=== PATIENT | female | born 1990 | race Hispanic/Latino ===

== ENCOUNTER 2020-11-08 00:55 | Inpatient (IN) | payer MEDICAID, OTHER ==
[2020-11-08] MEDS ORDERED: ACETAMINOPHEN EXTRA STRENGTH 500 MG TABLET ONE (02:13)
[2020-11-08 02:18] LABS: BASOPHILS % (AUTO) 0.4 % (0.0-5.0); EOSINOPHILS % (AUTO) 0.4 % (0.0-8.0); HEMATOCRIT 37.3 % (36-48); LYMPHOCYTES % (AUTO) 19.7 % (21.0-51.0); MEAN CORPUSCULAR HEMOGLOBIN 29.4 pg (27.0-33.0); MEAN CORPUSCULAR VOLUME 89.2 fL (79-99); MONOCYTES % (AUTO) 11.5 % (3.0-13.0); NEUTROPHILS % (AUTO) 67.8 % (40.0-77.0); PLATELET COUNT (AUTO) 243 K/uL (130-400); RED BLOOD CELL COUNT(AUTO) 4.18 MIL/uL (4.00-5.50); RED CELL DISTRIBUTION WIDTH 14.6 % (11.0-15.5); WHITE BLOOD COUNT (AUTO) 5.6 K/uL (4.8-10.8)
[2020-11-08] MEDS ORDERED: LIDOCAINE HCL 2% VISCOUS 15 ML UDCUP ONE (02:30)
[2020-11-08] MEDS ORDERED: LIDOCAINE HCL 1% 20 ML VIAL ONE (02:30)
[2020-11-08] MEDS ORDERED: CLINDAMYCIN 900 MG/D5% WATER 50 ML IV ONE (02:31)
[2020-11-08 02:32] LABS: INR 0.97 (0.85-1.15); PROTHROMBIN TIME 10.6 SEC (9.6-11.6)
[2020-11-08 02:34] LABS: PARTIAL THROMBOPLASTIN TIME 28.2 SEC (26.3-35.5)
[2020-11-08 02:38] LABS: APPEARANCE,URINE Clear (CLEAR); BILIRUBIN,URINE Negative (NEGATIVE); COLOR,URINE Yellow (YELLOW); GLUCOSE, URINE (UA) >=1000 mg/dL (NEGATIVE); KETONES,URINE Negative (NEGATIVE); LEUKOCYTE ESTERASE ,URINE Negative (NEGATIVE); NITRATE,URINE Negative (NEGATIVE); OCCULT BLOOD,URINE Negative (NEGATIVE); PROTEIN,URINE Negative (NEGATIVE)
[2020-11-08 02:43] LABS: ALANINE AMINOTRANSFERASE 90 U/L (12-78); ALBUMIN 3.6 g/dL (3.5-5.0); ASPARTATE AMINOTRANSFERASE 56 U/L (10-37); BILIRUBIN,TOTAL 0.7 mg/dL (0.2-1.0); CARBON DIOXIDE 29 mmol/L (21-32); CHLORIDE 98 mmol/L (101-111); CREATINE KINASE, TOTAL 49 U/L (21-232); CREATININE 0.8 mg/dL (0.5-1.5); GLOMERULAR FILTR. RATE CALC 89 mL/min (>60); MYOGLOBIN 24 ng/mL (10-92); POTASSIUM 3.7 mmol/L (3.5-5.1); SODIUM SERUM 135 mmol/L (136-145); TOTAL PROTEIN, SERUM 7.8 g/dL (6.0-8.3); TROPONIN I < 0.04 ng/mL (0.00-0.06); UREA NITROGEN, BLOOD 5 mg/dL (7-18)
[2020-11-08 02:46] LABS: BACTERIA,URINE None Seen /HPF (None Seen); RBC,URINE None Seen /HPF (0-1); WBC,URINE None Seen /HPF (0-1)
[2020-11-08 02:46] LABS: GLUCOSE,RANDOM 466 mg/dL (70-105)
[2020-11-08] MEDS ORDERED: KETOROLAC TROMETHAMINE 30MG/ML ONE (03:34)
[2020-11-08 03:38] LABS: ERYTHROCYTE SEDIMENTATION RATE 40 MM/HR (0-20)
[2020-11-08 04:24] LABS: ABG OXYGEN SATURATION 50.6 % (95.0-99.0); BASE EXCESS,VENOUS BLOOD GAS -0.3 (-2.0-3.0); HCO3,VENOUS BLOOD GAS 25.1 (21.0-28.0); PCO2,VENOUS BLOOD GAS 44 (32-45); PH,VENOUS BLOOD GAS 7.375 (7.350-7.450)
[2020-11-08] MEDS ORDERED: INSULIN HUMULIN R 100 UNIT/ML 3ML ONE (05:13)
[2020-11-08] MEDS ORDERED: ONDANSETRON HCL 4 MG/2 ML VIAL IV PRN (06:45)
[2020-11-08] MEDS ORDERED: LACTULOSE 20 GM/30 ML UDCUP PO PRN (06:45)
[2020-11-08] MEDS ORDERED: ACETAMINOPHEN 325 MG TAB PO PRN ×2 (06:45)
[2020-11-08] MEDS ORDERED: KETOROLAC TROMETHAMINE 15MG/ML IV PRN (06:45)
[2020-11-08] MEDS ORDERED: CLINDAMYCIN 600 MG/D5% WATER 50 ML IV SCH (06:45)
[2020-11-08] MEDS ORDERED: SODIUM CHLORIDE 0.9% 1000ML 1,000 ML IV SCH (06:45)
[2020-11-08] MEDS ORDERED: CEFTRIAXONE SODIUM 1 GM IVP SCH (07:15)
[2020-11-08 07:30] LABS: HEMOGLOBIN A1C 10.6 % (4.0-6.0)
[2020-11-08] MEDS ORDERED: INSULIN HUMULIN R 100 UNIT/ML 3ML SQ SCH (07:30)
[2020-11-08] MEDS ORDERED: ENOXAPARIN SODIUM 40 MG/0.4 ML SYRINGE SQ SCH (09:00)
[2020-11-08] MEDS ORDERED: FAMOTIDINE 20MG TAB 20 MG TAB PO SCH (09:00)
[2020-11-08] MEDS ORDERED: INSULIN GLARGINE 100 UNITS/ML 10 ML VIAL SQ SCH (09:00)
== END 2020-11-08 08:00 | disposition left against medical advice (07) | DRG 155 ==
LOC: EDH 00:55 → EDHIP 00:56
PROVIDERS: ADMIT Family Medicine; ATTEND Family Medicine
DX: S02.2XXA Fracture of nasal bones, initial encounter for closed fracture (principal); E87.1 Hypo-osmolality and hyponatremia; E11.9 Type 2 diabetes mellitus without complications; F41.9 Anxiety disorder, unspecified; G47.00 Insomnia, unspecified; J32.9 Chronic sinusitis, unspecified; R05 Cough; R74.8 Abnormal levels of other serum enzymes; F31.9 Bipolar disorder, unspecified; S50.12XA Contusion of left forearm, initial encounter; W01.0XXA Fall on same level from slipping, tripping and stumbling without subsequent striking against object, initial encounter; Y93.89 Activity, other specified; Y92.89 Other specified places as the place of occurrence of the external cause; Y99.8 Other external cause status; Z90.49 Acquired absence of other specified parts of digestive tract
CPT/HCPCS: 36415; 36600; 70486; 71045; 80053; 81001; 81025; 82010; 82550; 82803; 82948; 83036; 83605; 83874; 84145; 84484; 85025; 85610; 85651; 85730; 86140; 86900; 86901; 87040; 87070; 87076; 87088; 93005; G0378; J1815; J1885; J3490

== ENCOUNTER 2020-11-08 22:25 | Inpatient (IN) | payer OTHER ==
[~2020-11-08] VITALS: Ht 160 cm; Wt 82.5 kg
[2020-11-08 23:44] LABS: BASOPHILS % (AUTO) 0.4 % (0.0-5.0); EOSINOPHILS % (AUTO) 0.2 % (0.0-8.0); HEMATOCRIT 38.6 % (36-48); LYMPHOCYTES % (AUTO) 33.3 % (21.0-51.0); MEAN CORPUSCULAR HEMOGLOBIN 29.1 pg (27.0-33.0); MEAN CORPUSCULAR HGB CONC 32.4 g/dL (32.0-36.0); MEAN CORPUSCULAR VOLUME 89.8 fL (79-99); MONOCYTES % (AUTO) 13.2 % (3.0-13.0); NEUTROPHILS % (AUTO) 52.9 % (40.0-77.0); PLATELET COUNT (AUTO) 256 K/uL (130-400); RED CELL DISTRIBUTION WIDTH 14.9 % (11.0-15.5); WHITE BLOOD COUNT (AUTO) 4.7 K/uL (4.8-10.8)
[2020-11-09 00:02] LABS: CREATININE 0.7 mg/dL (0.5-1.5); POTASSIUM 3.3 mmol/L (3.5-5.1)
[2020-11-09] MEDS ORDERED: SODIUM CHLORIDE 0.9% 1000ML 1,000 ML IV ONE ×2 (00:03→20:22)
[2020-11-09 00:07] LABS: ALBUMIN 3.6 g/dL (3.5-5.0); BILIRUBIN,TOTAL 0.6 mg/dL (0.2-1.0); TOTAL PROTEIN, SERUM 8.2 g/dL (6.0-8.3)
[2020-11-09 00:11] LABS: BILIRUBIN,URINE Negative (NEGATIVE); COLOR,URINE Yellow (YELLOW); GLUCOSE, URINE (UA) >=1000 mg/dL (NEGATIVE); KETONES,URINE 40 mg/dL (NEGATIVE); LEUKOCYTE ESTERASE ,URINE Negative (NEGATIVE); NITRATE,URINE Negative (NEGATIVE); OCCULT BLOOD,URINE Negative (NEGATIVE); PROTEIN,URINE Negative (NEGATIVE)
[2020-11-09 00:13] LABS: APPEARANCE,URINE HAZY (CLEAR)
[2020-11-09 00:18] LABS: AMPHET/METH SCREEN,URINE NEGATIVE (NEGATIVE); BARBITURATE SCREEN, URINE NEGATIVE (NEGATIVE); BENZODIAZEPINES SCREEN,URINE NEGATIVE (NEGATIVE); CANNABINOID SCREEN,URINE POSITIVE (NEGATIVE); COCAINE SCREEN,URINE NEGATIVE (NEGATIVE); OPIATE SCREEN,URINE NEGATIVE (NEGATIVE); PHENCYCLIDINE SCREEN,URINE NEGATIVE (NEGATIVE)
[2020-11-09 00:22] LABS: ABG OXYGEN SATURATION 61.9 % (95.0-99.0); BASE EXCESS,VENOUS BLOOD GAS -2.9 (-2.0-3.0); HCO3,VENOUS BLOOD GAS 21.7 (21.0-28.0); PCO2,VENOUS BLOOD GAS 37 (32-45); PH,VENOUS BLOOD GAS 7.382 (7.350-7.450)
[2020-11-09] MEDS ORDERED: CLINDAMYCIN 900 MG/D5% WATER 50 ML IV ONE (00:24)
[2020-11-09] MEDS ORDERED: VANCOMYCIN 1GM+NS 250ML 500 ML IV ONE (00:24)
[2020-11-09 00:27] LABS: BACTERIA,URINE Few /HPF (None Seen); MUCUS,URINE Few LPF (None Seen); RBC,URINE 0-1 /HPF (0-1); WBC,URINE 0-1 /HPF (0-1); YEAST,URINE BUDDING Rare /HPF (None Seen)
[2020-11-09] MEDS ORDERED: SODIUM CHLORIDE 0.9% 1000ML 2,000 ML IV ONE (00:31)
[2020-11-09] MEDS ORDERED: INSULIN HUMULIN R 100 UNIT/ML 3ML ONE ×4 (00:33→18:00)
[2020-11-09] MEDS: SODIUM CHLORIDE 0.9% 1000ML 1,000 ML IV SCH ×3 (03:00→23:00)
[2020-11-09] MEDS ORDERED: VANCOMYCIN PROTOCOL PER PHARMACY IV PRN (03:00)
[2020-11-09] MEDS ORDERED: ACETAMINOPHEN 325 MG TAB PO PRN (03:00)
[2020-11-09 03:20] LABS: HEMOGLOBIN A1C 10.6 % (4.0-6.0)
[2020-11-09] MEDS ORDERED: SODIUM CHLORIDE 0.9% 100 ML IV ONE (04:53)
[2020-11-09] MEDS ORDERED: ZOSYN 3.375GM+NS 50ML 50 ML IV ONE ×2 (04:53→14:56)
[2020-11-09] MEDS: ZOSYN 3.375GM+NS 50ML 50 ML IV SCH ×4 (05:00→23:09)
[2020-11-09 05:38] LABS: BASOPHILS % (AUTO) 0.2 % (0.0-5.0); EOSINOPHILS % (AUTO) 0.5 % (0.0-8.0); HEMATOCRIT 31.3 % (36-48); LYMPHOCYTES % (AUTO) 47.6 % (21.0-51.0); MEAN CORPUSCULAR HEMOGLOBIN 29.1 pg (27.0-33.0); MEAN CORPUSCULAR HGB CONC 32.6 g/dL (32.0-36.0); MEAN CORPUSCULAR VOLUME 89.2 fL (79-99); NEUTROPHILS % (AUTO) 37.5 % (40.0-77.0); PLATELET COUNT (AUTO) 208 K/uL (130-400); RED BLOOD CELL COUNT(AUTO) 3.51 MIL/uL (4.00-5.50); RED CELL DISTRIBUTION WIDTH 14.6 % (11.0-15.5); WHITE BLOOD COUNT (AUTO) 4.4 K/uL (4.8-10.8)
[2020-11-09 06:11] LABS: ALBUMIN 2.9 g/dL (3.5-5.0); BILIRUBIN,TOTAL 0.4 mg/dL (0.2-1.0); CREATININE 0.5 mg/dL (0.5-1.5); POTASSIUM 3.1 mmol/L (3.5-5.1); TOTAL PROTEIN, SERUM 5.9 g/dL (6.0-8.3)
[2020-11-09] MEDS ORDERED: COMPOUND IV REFRIGERATED 1 EACH IVSOLN MISC PRN (07:00)
[2020-11-09 07:03] LABS: ERYTHROCYTE SEDIMENTATION RATE 33 MM/HR (0-20)
[2020-11-09] MEDS: INSULIN HUMULIN R 100 UNIT/ML 3ML SQ SCH ×4 (07:30→21:00)
[2020-11-09] MEDS: INSULIN GLARGINE 100 UNITS/ML 10 ML VIAL SQ SCH ×2 (07:45→21:00)
[2020-11-09] MEDS: FAMOTIDINE/PF 20 MG/2 ML VIAL IV SCH ×2 (09:00→21:00)
[2020-11-09] MEDS: VANCOMYCIN 1.25 GM in SODIUM CHLORIDE 0.9% 250 ML IV SCH ×3 (09:00→22:00)
[2020-11-09] MEDS ORDERED: FAMOTIDINE/PF 20 MG/2 ML VIAL IV ONE ×2 (09:19→21:07)
[2020-11-09] MEDS ORDERED: POTASSIUM CHLORIDE 10% ELIXIR 20 MEQ/15 ML UDCUP PO PRN (10:15)
[2020-11-09] MEDS ORDERED: POTASSIUM CHLORIDE 20MEQ/100ML 100 ML IV PRN (10:15)
[2020-11-09] MEDS ORDERED: POTASSIUM CHLORIDE 20 MEQ ERTAB PO ONE ×2 (10:36→20:46)
[2020-11-09] MEDS ORDERED: DOXYCYCLINE HYCLATE 100 MG TABLET PO ONE (12:27)
[2020-11-09] MEDS ORDERED: ONDANSETRON ODT 4 MG TAB ONE (12:42)
[2020-11-09] MEDS ORDERED: SODIUM CHLORIDE 0.9% 50 ML IV ONE (14:56)
[2020-11-09] MEDS ORDERED: ONDANSETRON HCL 4 MG/2 ML VIAL ONE ×2 (16:52→21:06)
[2020-11-09 19:59] LABS: CREATININE 0.7 mg/dL (0.5-1.5); POTASSIUM 3.4 mmol/L (3.5-5.1)
[2020-11-09] MEDS: DOXYCYCLINE HYCLATE 100 MG TABLET PO SCH (21:00)
[2020-11-09] MEDS ORDERED: MORPHINE SULFATE 2 MG/ML 1ML SYG ONE (21:07)
[2020-11-09 21:53] VITALS: BP 122/83
[2020-11-09] MEDS: ONDANSETRON HCL 4 MG/2 ML VIAL IV PRN (23:09)
[2020-11-10] VITALS (24 sets, daily range): BP systolic 107–141; BP diastolic 57–82
[2020-11-10] MEDS: MORPHINE SULFATE 2 MG/ML 1ML SYG IV PRN ×2 (01:08→21:38)
[2020-11-10] MEDS: ONDANSETRON HCL 4 MG/2 ML VIAL IV PRN (04:57)
[2020-11-10 05:38] LABS: BASOPHILS % (AUTO) 0.2 % (0.0-5.0); EOSINOPHILS % (AUTO) 0.4 % (0.0-8.0); HEMATOCRIT 32.1 % (36-48); LYMPHOCYTES % (AUTO) 52.6 % (21.0-51.0); MEAN CORPUSCULAR HEMOGLOBIN 29.1 pg (27.0-33.0); MEAN CORPUSCULAR HGB CONC 32.1 g/dL (32.0-36.0); MEAN CORPUSCULAR VOLUME 90.7 fL (79-99); MONOCYTES % (AUTO) 11.6 % (3.0-13.0); PLATELET COUNT (AUTO) 223 K/uL (130-400); RED BLOOD CELL COUNT(AUTO) 3.54 MIL/uL (4.00-5.50); RED CELL DISTRIBUTION WIDTH 14.7 % (11.0-15.5); WHITE BLOOD COUNT (AUTO) 4.6 K/uL (4.8-10.8)
[2020-11-10 05:54] LABS: INR 0.96 (0.85-1.15); PROTHROMBIN TIME 10.5 SEC (9.6-11.6)
[2020-11-10 05:55] LABS: PARTIAL THROMBOPLASTIN TIME 33.5 SEC (26.3-35.5)
[2020-11-10 06:00] LABS: ALBUMIN 2.6 g/dL (3.5-5.0); BILIRUBIN,TOTAL 0.4 mg/dL (0.2-1.0); CREATININE 0.8 mg/dL (0.5-1.5); POTASSIUM 3.3 mmol/L (3.5-5.1); TOTAL PROTEIN, SERUM 6.2 g/dL (6.0-8.3)
[2020-11-10] MEDS: INSULIN HUMULIN R 100 UNIT/ML 3ML SQ SCH ×4 (06:55→21:55)
[2020-11-10] MEDS: FAMOTIDINE/PF 20 MG/2 ML VIAL IV SCH ×2 (09:00→21:38)
[2020-11-10] MEDS: DOXYCYCLINE HYCLATE 100 MG TABLET PO SCH ×2 (09:00→21:38)
[2020-11-10] MEDS: SODIUM CHLORIDE 0.9% 1000ML 1,000 ML IV SCH ×2 (09:00→19:12)
[2020-11-10] MEDS: ZOSYN 3.375GM+NS 50ML 50 ML IV SCH ×2 (12:57→21:38)
[2020-11-10] MEDS: VANCOMYCIN 1.25 GM in SODIUM CHLORIDE 0.9% 250 ML IV SCH ×2 (13:01→21:53)
[2020-11-10] MEDS ORDERED: METOCLOPRAMIDE 10 MG/2 ML VIAL ONE (14:27)
[2020-11-10] MEDS ORDERED: CITRIC ACID/SODIUM CITRATE 30 ML UDCUP ONE (14:28)
[2020-11-10] MEDS ORDERED: FENTANYL CITRATE PF 50 MCG/1 ML 2ML VIAL ONE (14:36)
[2020-11-10] MEDS ORDERED: ROCURONIUM 10MG/1ML SYR 10 MG/ML ML ONE (14:36)
[2020-11-10] MEDS ORDERED: PROPOFOL 10 MG/ML 20ML VIAL IV ONE (14:36)
[2020-11-10] MEDS ORDERED: LIDOCAINE PF 2% 5ML ABBOJECT ONE (14:36)
[2020-11-10] MEDS ORDERED: SUCCINYLCHOLINE 200MG/10ML SYR ONE (14:36)
[2020-11-10] MEDS ORDERED: BACITRACIN 28.4 GM OINT TP ONE (14:39)
[2020-11-10] MEDS ORDERED: EPINEPHRINE 1 MG/ML 30ML VIAL IJ ONE (14:39)
[2020-11-10] MEDS ORDERED: LIDOCAINE 1%-EPI 1:100,000 20 ML VIAL IJ ONE (14:40)
[2020-11-10] MEDS ORDERED: PHENYLEPHRINE HCL 10 MG/ML 1ML VIAL IV ONE (14:57)
[2020-11-10] MEDS ORDERED: NEOSTIGMINE 5MG/5ML SYR IV ONE ×2 (15:02→15:35)
[2020-11-10] MEDS ORDERED: GLYCOPYRROLATE 1 MG/5 ML SYRINGE ONE ×2 (15:02→15:34)
[2020-11-10] MEDS ORDERED: MEPERIDINE-PF 25 MG/ML SYG ONE ×2 (16:01→16:10)
[2020-11-10] MEDS ORDERED: INSULIN GLARGINE 100 UNITS/ML 10 ML VIAL SQ ONE (19:30)
[2020-11-11] MEDS ORDERED: LIDOCAINE HCL-MPF 1% 2ML VIAL ONE (01:34)
[2020-11-11] MEDS: POTASSIUM CHLORIDE 20MEQ/100ML 100 ML IV PRN ×2 (01:39→03:43)
[2020-11-11 03:28] VITALS: BP 123/73
[2020-11-11] MEDS: LIDOCAINE HCL-MPF 1% 2ML VIAL IV PRN (03:43)
[2020-11-11] MEDS: MORPHINE SULFATE 2 MG/ML 1ML SYG IV PRN ×2 (03:43→09:25)
[2020-11-11] MEDS: SODIUM CHLORIDE 0.9% 1000ML 1,000 ML IV SCH ×4 (05:00→23:59)
[2020-11-11] MEDS: ZOSYN 3.375GM+NS 50ML 50 ML IV SCH (05:03)
[2020-11-11 05:16] LABS: BASOPHILS % (AUTO) 0.2 % (0.0-5.0); HEMATOCRIT 32.2 % (36-48); LYMPHOCYTES % (AUTO) 24.6 % (21.0-51.0); MEAN CORPUSCULAR HEMOGLOBIN 28.6 pg (27.0-33.0); MEAN CORPUSCULAR HGB CONC 31.7 g/dL (32.0-36.0); MEAN CORPUSCULAR VOLUME 90.2 fL (79-99); MONOCYTES % (AUTO) 11.4 % (3.0-13.0); NEUTROPHILS % (AUTO) 63.6 % (40.0-77.0); PLATELET COUNT (AUTO) 221 K/uL (130-400); RED BLOOD CELL COUNT(AUTO) 3.57 MIL/uL (4.00-5.50); RED CELL DISTRIBUTION WIDTH 14.6 % (11.0-15.5); WHITE BLOOD COUNT (AUTO) 4.8 K/uL (4.8-10.8)
[2020-11-11 05:47] LABS: ALBUMIN 2.6 g/dL (3.5-5.0); BILIRUBIN,TOTAL 0.4 mg/dL (0.2-1.0); CREATININE 0.7 mg/dL (0.5-1.5); POTASSIUM 3.9 mmol/L (3.5-5.1); TOTAL PROTEIN, SERUM 6.4 g/dL (6.0-8.3)
[2020-11-11] MEDS: INSULIN HUMULIN R 100 UNIT/ML 3ML SQ SCH ×7 (05:59→21:00)
[2020-11-11 07:52] VITALS: BP 116/80
[2020-11-11] MEDS: DOXYCYCLINE HYCLATE 100 MG TABLET PO SCH ×2 (09:25→21:26)
[2020-11-11] MEDS: FAMOTIDINE/PF 20 MG/2 ML VIAL IV SCH ×2 (09:25→21:26)
[2020-11-11] MEDS: VANCOMYCIN 1.25 GM in SODIUM CHLORIDE 0.9% 250 ML IV SCH (10:08)
[2020-11-11 11:30] VITALS: BP 107/72
[2020-11-11] MEDS: CEFTRIAXONE SODIUM 1 GM IVP SCH (14:37)
[2020-11-11 16:16] VITALS: BP 132/80
[2020-11-11] MEDS: INSULIN GLARGINE 100 UNITS/ML 10 ML VIAL SQ SCH (18:42)
[2020-11-11 19:59] VITALS: BP 126/77
[2020-11-11] MEDS: ACETAMINOPHEN-CODEINE 300/30MG TAB PO PRN (21:27)
[2020-11-12] VITALS (7 sets, daily range): BP systolic 109–132; BP diastolic 68–87
[2020-11-12 05:11] LABS: BASOPHILS % (AUTO) 0.2 % (0.0-5.0); EOSINOPHILS % (AUTO) 0.2 % (0.0-8.0); HEMATOCRIT 34.2 % (36-48); LYMPHOCYTES % (AUTO) 39.1 % (21.0-51.0); MEAN CORPUSCULAR HEMOGLOBIN 27.9 pg (27.0-33.0); MEAN CORPUSCULAR HGB CONC 31.6 g/dL (32.0-36.0); MEAN CORPUSCULAR VOLUME 88.4 fL (79-99); MONOCYTES % (AUTO) 11.5 % (3.0-13.0); NEUTROPHILS % (AUTO) 48.8 % (40.0-77.0); PLATELET COUNT (AUTO) 217 K/uL (130-400); RED BLOOD CELL COUNT(AUTO) 3.87 MIL/uL (4.00-5.50); RED CELL DISTRIBUTION WIDTH 14.4 % (11.0-15.5); WHITE BLOOD COUNT (AUTO) 4.5 K/uL (4.8-10.8)
[2020-11-12 05:51] LABS: ALBUMIN 2.5 g/dL (3.5-5.0); BILIRUBIN,TOTAL 0.4 mg/dL (0.2-1.0); CREATININE 0.7 mg/dL (0.5-1.5); POTASSIUM 3.3 mmol/L (3.5-5.1); TOTAL PROTEIN, SERUM 6.4 g/dL (6.0-8.3)
[2020-11-12] MEDS: INSULIN HUMULIN R 100 UNIT/ML 3ML SQ SCH ×7 (06:12→20:46)
[2020-11-12] MEDS: ONDANSETRON HCL 4 MG/2 ML VIAL IV PRN ×3 (06:40→20:49)
[2020-11-12] MEDS: POTASSIUM CHLORIDE 20MEQ/100ML 100 ML IV PRN (06:41)
[2020-11-12] MEDS: LIDOCAINE HCL-MPF 1% 2ML VIAL IV PRN (06:41)
[2020-11-12] MEDS: FAMOTIDINE/PF 20 MG/2 ML VIAL IV SCH ×2 (09:33→20:46)
[2020-11-12] MEDS: DOXYCYCLINE HYCLATE 100 MG TABLET PO SCH ×2 (09:33→20:46)
[2020-11-12] MEDS: INSULIN GLARGINE 100 UNITS/ML 10 ML VIAL SQ SCH (09:43)
[2020-11-12] MEDS: ACETAMINOPHEN 325 MG TAB PO PRN ×2 (09:56→18:50)
[2020-11-12] MEDS ORDERED: IBUPROFEN 400 MG TABLET PO SCH (11:30)
[2020-11-12] MEDS: SODIUM CHLORIDE 0.9% 1000ML 1,000 ML IV SCH ×3 (12:11→23:33)
[2020-11-12] MEDS: POTASSIUM CHLORIDE 20 MEQ ERTAB PO PRN ×3 (14:00→23:46)
[2020-11-12] MEDS: CEFTRIAXONE SODIUM 1 GM IVP SCH (14:00)
[2020-11-12] MEDS: ACETAMINOPHEN-CODEINE 300/30MG TAB PO PRN (20:52)
[2020-11-13 04:00] VITALS: BP 110/72
[2020-11-13] MEDS: INSULIN HUMULIN R 100 UNIT/ML 3ML SQ SCH ×7 (05:54→20:28)
[2020-11-13 08:00] VITALS: BP 127/71
[2020-11-13] MEDS: FAMOTIDINE/PF 20 MG/2 ML VIAL IV SCH ×2 (08:26→20:29)
[2020-11-13] MEDS: DOXYCYCLINE HYCLATE 100 MG TABLET PO SCH ×2 (08:26→20:29)
[2020-11-13] MEDS: INSULIN GLARGINE 100 UNITS/ML 10 ML VIAL SQ SCH (08:28)
[2020-11-13] MEDS: IBUPROFEN 800 MG TAB PO SCH ×3 (10:29→20:32)
[2020-11-13] MEDS: SODIUM CHLORIDE 0.9% 1000ML 1,000 ML IV SCH (10:30)
[2020-11-13 11:32] VITALS: BP 109/61
[2020-11-13] MEDS: CEFTRIAXONE SODIUM 1 GM IVP SCH (12:58)
[2020-11-13 16:00] VITALS: BP 132/79
[2020-11-13 19:49] VITALS: BP 120/71
[2020-11-13 23:45] VITALS: BP 137/78
[2020-11-14] MEDS: SODIUM CHLORIDE 0.9% 1000ML 1,000 ML IV SCH (03:00)
[2020-11-14] MEDS: IBUPROFEN 800 MG TAB PO SCH (03:30)
[2020-11-14 04:00] VITALS: BP 124/80
[2020-11-14] MEDS: INSULIN HUMULIN R 100 UNIT/ML 3ML SQ SCH ×4 (05:22→11:30)
[2020-11-14 06:28] LABS: BASOPHILS % (AUTO) 0.2 % (0.0-5.0); EOSINOPHILS % (AUTO) 0.2 % (0.0-8.0); HEMATOCRIT 35.4 % (36-48); LYMPHOCYTES % (AUTO) 28.1 % (21.0-51.0); MEAN CORPUSCULAR HEMOGLOBIN 28.4 pg (27.0-33.0); MEAN CORPUSCULAR HGB CONC 32.2 g/dL (32.0-36.0); MEAN CORPUSCULAR VOLUME 88.1 fL (79-99); MONOCYTES % (AUTO) 9.9 % (3.0-13.0); NEUTROPHILS % (AUTO) 61.4 % (40.0-77.0); PLATELET COUNT (AUTO) 202 K/uL (130-400); RED BLOOD CELL COUNT(AUTO) 4.02 MIL/uL (4.00-5.50); WHITE BLOOD COUNT (AUTO) 4.6 K/uL (4.8-10.8)
[2020-11-14 06:45] LABS: ALBUMIN 2.7 g/dL (3.5-5.0); BILIRUBIN,TOTAL 0.4 mg/dL (0.2-1.0); CREATININE 0.7 mg/dL (0.5-1.5); POTASSIUM 3.3 mmol/L (3.5-5.1)
[2020-11-14 08:00] VITALS: BP 118/76
[2020-11-14] MEDS: INSULIN GLARGINE 100 UNITS/ML 10 ML VIAL SQ SCH (08:50)
[2020-11-14] MEDS: FAMOTIDINE/PF 20 MG/2 ML VIAL IV SCH (08:51)
[2020-11-14] MEDS: DOXYCYCLINE HYCLATE 100 MG TABLET PO SCH (08:51)
[2020-11-14] MEDS ORDERED: DIPHENHYDRAMINE HCL 25 MG CAPSULE PO SCH (11:30)
[2020-11-14] MEDS ORDERED: DOXY100C2 PO (11:39)
[2020-11-14] MEDS ORDERED: CEPH500B PO (11:39)
[2020-11-14 12:00] VITALS: BP 138/84
== END 2020-11-14 14:00 | disposition home or self-care (01) | DRG 144 ==
LOC: EDH 22:25 → EDHIP 22:26 → 3BH 11-09 21:31
PROVIDERS: ADMIT Family Medicine; ATTEND Family Medicine
PROC: 0JB10ZZ Excision of Face Subcutaneous Tissue and Fascia, Open Approach (ICD-10-PCS; principal; 2020-11-09)
DX: S02.2XXA Fracture of nasal bones, initial encounter for closed fracture (principal); E87.1 Hypo-osmolality and hyponatremia; R74.8 Abnormal levels of other serum enzymes; F31.9 Bipolar disorder, unspecified; E11.9 Type 2 diabetes mellitus without complications; F41.8 Other specified anxiety disorders; G47.00 Insomnia, unspecified; J32.9 Chronic sinusitis, unspecified; R53.81 Other malaise; W19.XXXA Unspecified fall, initial encounter; Y93.89 Activity, other specified; Y92.89 Other specified places as the place of occurrence of the external cause; Y99.8 Other external cause status
CPT/HCPCS: 36415; 36600; 73090; 80048; 80053; 80202; 80305; 82010; 82803; 82948; 83036; 83605; 84145; 85025; 85610; 85651; 85730; 86757; 87040; 87070; 87076; A4606; G0378; J0171; J0330; J0696; J1815; J2001; J2175; J2370; J2405; J2543; J2704; J2710; J2765; J3010; J3370; J3480; J3490; J7030; J7050; Q0163